=== PATIENT | female | born 1975 | race Caucasian/White ===

== ENCOUNTER → 2021-01-24 | Outpatient (CLI) | payer BC ==
[2021-01-24 15:13] LABS: Basophils # (A) 0.1 k/uL (0-0.2); Basophils % (A) 1 %; Eosinophils # (A) 0.2 k/uL (0-0.7); Eosinophils % (A) 3 %; HCT 34.8 % (34.0-46.0); HGB 12.2 gm/dL (11.4-16.0); Lymphocytes # (A) 1.3 k/uL (1.0-4.8); Lymphocytes % (A) 23 %; MCH 32.1 pg (25.0-35.0); MCV 91.7 fL (80.0-100.0); Mean Platelet Volume 8.3; Monocytes # (A) 0.2 k/uL (0-1.0); Monocytes % (A) 3 %; Neutrophils # (A) 3.9 k/uL (1.3-7.7); Neutrophils % (A) 68 %; Platelet Count 266 k/uL (150-450); RBC 3.79 m/uL (3.80-5.40); RDW 12.8 % (11.5-15.5); WBC 5.8 k/uL (3.8-10.6)
== END | disposition home or self-care (01) ==
LOC: LABPAT 14:39
PROVIDERS: ATTEND Obstetrics & Gynecology
DX: Z01.812 Encounter for preprocedural laboratory examination (principal); N92.0 Excessive and frequent menstruation with regular cycle
CPT/HCPCS: 36415; 85025

== ENCOUNTER 2021-02-18 06:42 | Day surgery (SDC) | payer BC, OTHER ==
[2021-02-15 13:30] VITALS: BMI 22.3
[~2021-02-18 06:42] MED LIST: DEXAMETHASONE SOD PHOSPHATE 4 MG/ML 1 ML VIAL IV ONE; LACTATED RINGERS 1,000 ML IV SCH; LIDOCAINE 1% (10MG/ML) FOR IV START INTRADERMA PRN; ONDANSETRON 4 MG/2 ML VIAL IVP ONE; Pre Op ABX Message 1 EACH MISC MISCELLANE ONE; SCOPOLAMINE 1.5MG/72HR PATCH TRANSDERM ONE
[2021-02-18] MEDS ORDERED: HYDROmorphone 0.5 MG/0.5 ML SYRINGE IVP PRN (07:00)
[2021-02-18] MEDS ORDERED: KETOROLAC 15 MG/ML 1 ML VIAL ONE (08:05)
[2021-02-18] MEDS ORDERED: PROPOFOL 10 MG/ML 20 ML VIAL IV ONE (08:05)
[2021-02-18] MEDS ORDERED: MIDAZOLAM 2 MG/2 ML VIAL ONE (08:05)
[2021-02-18] MEDS ORDERED: fentaNYL (PF) 50 MCG/ML 2 ML AMP ONE (08:05)
[2021-02-18] MEDS ORDERED: LIDOCAINE 1% INJ 10MG/ML (20 ML MDV) ONE (08:05)
[2021-02-18] MEDS ORDERED: diphenhydrAMINE 50 MG/ML 1 ML VIAL IVP PRN (08:50)
[2021-02-18] MEDS ORDERED: KETOROLAC 15 MG/ML 1 ML VIAL IVP PRN (08:50)
[2021-02-18] MEDS ORDERED: METOCLOPRAMIDE 5 MG/ML 2 ML VIAL IVP PRN (08:50)
[2021-02-18] MEDS ORDERED: SIMETHICONE 80 MG CHEWABLE PO PRN (08:50)
[2021-02-18] MEDS ORDERED: IBUPROFEN 600 MG TAB PO PRN (08:50)
[2021-02-18] MEDS ORDERED: ONDANSETRON 4 MG/2 ML VIAL IVP PRN (08:50)
[2021-02-18] MEDS ORDERED: Acetaminophen-Codeine 300-30mg TAB PO PRN ×2 (08:50)
[2021-02-18 08:57] VITALS: TEMP 98.7
[2021-02-18] MEDS ORDERED: LACTATED RINGERS 1,000 ML IV SCH (09:00)
--- NOTE | 2021-02-18 09:02 | P.OP ---
Date of Procedure: 02/18/21 Preoperative Diagnosis: #1. Menorrhagia Postoperative Diagnosis: same Procedure(s) Performed: #1. Diagnostic hysteroscopy #2. NovaSure endometrial ablation Anesthesia: other (Gen. by LMA) Surgeon: Cory Carlos Estimated Blood Loss (ml): 2 IV fluids (ml): 600 Urine output (ml): 25 Pathology: none sent Condition: stable Disposition: PACU Operative Findings: preoperative pelvic examination demonstrated a roughly 5 week anteverted mobile normal shaped uterus with normal adnexa bilaterally. Intraoperatively, the uterus sounded to approximately 8.5 cm with a cervical length of approximately 3 cm. The hysteroscope demonstrated normal bilateral tubal ostia with some shaggy endometrium primarily on the posterior wall of the tunnel portion of the uterus. There was no other pathology present. The settings for the NovaSure tool where a length of 5.5 centimeters, a width of 4.4 cm for a total power of 132 Wilson. Following the procedure, the postprocedural result appeared to be excellent. The patient is a borderline candidate for vaginal hysterectomy should it become necessary in the future. Description of Procedure: the patient was prepped and draped in usual fashion after general anesthesia was administered by the anesthesiologist. A weighted speculum was placed and the bladder was draining approximately 25 mL of clear oziel urine. The anterior lip cervix was grasped with a single-tooth tenaculum and the uterus sounded to approximately 8.5 cm with a cervical length of approximately 3 cm. Serial dilation was carried out to admit the diagnostic hysteroscope which was placed in the fundus and the cavity distended with normal saline. The bilateral tubal ostia were seen and there was a moderate amount of shaggy tissue along the posterior wall of the endometrial cavity but no other apparent pathology to include polyps or fibroids. The hysteroscope was set aside and the NovaSure tool placed into the endometrial cavity, opened, and seated well. The settings for the tool were a length of 5.5 cm, a width of 4.4 cm for a total power of 132 Wilson. The cavity check was attempted and passed without difficulty. The tool was enabled and the run was started. After total run time of 74 seconds, the base unit read "procedure complete." The tool was closed, removed, and discarded. The diagnostic hysteroscope was replaced within the endometrial cavity and the findings appeared excellent as noted above. All instrumentation was then removed from the patient. There was no ongoing bleeding from the site of the tenaculum or any other site. Estimated blood loss for the entire case was 2 mL or less. There were no complications. All sponge, instrument, and needle counts were correct. The patient tolerated the procedure well and proceeded to the recovery room in stable condition.
[2021-02-18] MEDS ORDERED: LACTATED RINGERS 1,000 ML IV ONE (09:17)
[2021-02-18 09:29] VITALS: RESP 18
[2021-02-18 09:50] VITALS: BP 126/72; PULSE 78
== END 2021-02-18 09:56 | disposition home or self-care (01) ==
LOC: OR 06:42
PROVIDERS: ATTEND Obstetrics & Gynecology
DX: N92.0 Excessive and frequent menstruation with regular cycle (principal); Z88.2 Allergy status to sulfonamides; Z88.8 Allergy status to other drugs, medicaments and biological substances; F17.210 Nicotine dependence, cigarettes, uncomplicated
CPT/HCPCS: 81025; 58563; J2250; J1100; J2405; J2001; J3010; J1885; J2704